=== PATIENT | male | born 1970 | race Caucasian/White ===

== ENCOUNTER 2022-08-18 21:57 | Emergency (ER) | payer OTHER ==
[2022-08-18] MEDS ORDERED: Cephalexin 500 MG Cap PO ONE (22:09)
== END 2022-08-18 22:28 | disposition home or self-care (01) ==
LOC: FB.ED 21:57
DX: S61.212A Laceration without foreign body of right middle finger without damage to nail, initial encounter (principal); W25.XXXA Contact with sharp glass, initial encounter
CPT/HCPCS: 99283; A9270